=== PATIENT | male | born 1955 | race Caucasian/White ===

== ENCOUNTER 2017-09-21 08:34 | Day surgery (SDC) | payer BC ==
[2017-09-21] MEDS ORDERED: PROPOFOL 10 MG/ML VIAL IV ONE (08:35)
[2017-09-21] MEDS ORDERED: LIDOCAINE 2% MDV (20MG/ML) 20ML VIAL IV ONE (08:35)
--- NOTE | 2017-09-22 12:30 | Operative Note ---
DATE OF SURGERY: 09/21/2017 OPERATION: COLONOSCOPY. PREOPERATIVE DIAGNOSIS: Screening. POSTOPERATIVE DIAGNOSIS: Severe sigmoid diverticulosis. PREPARATION QUALITY: Good. ESTIMATED BLOOD LOSS: None. COMPLICATIONS: None apparent. SPECIMENS: None. PROCEDURE: After informed consent was obtained from the patient, he was placed in the left lateral decubitus position in the endoscopy suite, sedated and monitored by the department of anesthesia. Digital rectal examination revealed no palpable mass. A well-lubricated PFB341 colonoscope was inserted into the rectum and advanced to the cecum. Preparation quality was good to excellent. The cecum, ileocecal valve, appendiceal orifice, ascending colon, transverse colon, and descending colon were free of inflammatory changes, mass lesions, or polyps. The sigmoid colon demonstrated severe diverticular changes. No inflammation was seen. There were some punctate erythematous changes noted. No polyps or mass lesions were seen. The rectum were unremarkable in forward and in J-turn views. The endoscope was straightened, the rectal ampulla deflated, and the endoscope was removed. RECOMMENDATIONS: The patient should follow a high-fiber diet and use a fiber supplement such as Benefiber or Citrucel. I would recommend repeat exam in 10 years unless symptoms or history changes occur. As always, thank you for allowing me to participate in the healthcare of your patients. CC: Dr. Abiodun TORRES
== END 2017-09-21 10:09 | disposition home or self-care (01) ==
LOC: HOP 08:34
PROVIDERS: ATTEND Internal Medicine Gastroenterology
DX: Z12.11 Encounter for screening for malignant neoplasm of colon (principal); K57.30 Diverticulosis of large intestine without perforation or abscess without bleeding; J44.9 Chronic obstructive pulmonary disease, unspecified
CPT/HCPCS: 00810; G0121